=== PATIENT | female | born 1950 | race Caucasian/White ===

== ENCOUNTER → 2020-08-27 | Outpatient (CLI) | payer MEDICARE, OTHER ==
[~2020-08-27] MED LIST: ALBU2.5V8 INH; AMLO-186 PO; ASPI325T8 PO; ATEN100T PO; DIPH50CA59 PO; DULA0.75 SQ; LEVO100T5 PO; METF-658 PO; OLME40TA12 PO; SIMV20TA18 PO; SPIR25TA5 PO; TRAM50TA PO; TURM500C4 PO
== END ==
LOC: LAB 10:00
PROVIDERS: ATTEND Nurse Anesthetist, Certified Registered
DX: Z01.812 Encounter for preprocedural laboratory examination (principal); Z20.822 Contact with and (suspected) exposure to COVID-19
CPT/HCPCS: U0003

== ENCOUNTER → 2020-08-31 | Day surgery (SDC) | payer MEDICARE, OTHER ==
[~2020-08-31] MED LIST changes: +IPRATRPIUM/ALBUTEROL 0.5/2.5MG 3 ML NEBU. NEB PRN; +IV RINGERS SOLUTION,LACTATED 1,000 ML IV SCH; +LIDOCAINE 2% PF 5 ML VIAL. ONE; +MIDAZOLAM HCL PF 2 MG/2 ML VIAL. IV ONE; +ONDANSETRON PF 4 MG/2 ML VIAL. IV PRN; +PROPOFOL 10,000 MCG/ML (20ML) VIAL IV ONE
[2020-08-31 11:16] VITALS: BP 141/70
== END | disposition home or self-care (01) ==
LOC: SURG 09:05
PROVIDERS: ATTEND Emergency Medicine
DX: Z12.11 Encounter for screening for malignant neoplasm of colon (principal); K63.5 Polyp of colon; K63.89 Other specified diseases of intestine; I10 Essential (primary) hypertension; E78.00 Pure hypercholesterolemia, unspecified; F17.210 Nicotine dependence, cigarettes, uncomplicated; K21.9 Gastro-esophageal reflux disease without esophagitis; E11.9 Type 2 diabetes mellitus without complications; Z88.0 Allergy status to penicillin; Z88.8 Allergy status to other drugs, medicaments and biological substances; Z98.890 Other specified postprocedural states; Z79.899 Other long term (current) drug therapy; Z79.82 Long term (current) use of aspirin; Z79.84 Long term (current) use of oral hypoglycemic drugs
CPT/HCPCS: 45380; 45385; 82947; 88305; J2001; J2704; J7120

== ENCOUNTER 2021-02-13 12:14 | Emergency (ER) | payer MEDICARE, OTHER ==
[~2021-02-13] VITALS: Ht 170.2 cm; Wt 90.0 kg
[~2021-02-13 12:14] MED LIST changes: -IPRATRPIUM/ALBUTEROL 0.5/2.5MG 3 ML NEBU. NEB PRN; -IV RINGERS SOLUTION,LACTATED 1,000 ML IV SCH; -LIDOCAINE 2% PF 5 ML VIAL. ONE; -MIDAZOLAM HCL PF 2 MG/2 ML VIAL. IV ONE; -ONDANSETRON PF 4 MG/2 ML VIAL. IV PRN; -PROPOFOL 10,000 MCG/ML (20ML) VIAL IV ONE
[2021-02-13 12:25] VITALS: BP 141/70
[2021-02-13] MEDS ORDERED: COLCHICINE 0.6 MG TABLET. PO ONE ×2 (12:45→13:15)
[2021-02-13] MEDS ORDERED: IBUPROFEN 600 MG TABLET. PO ONE (13:00)
--- NOTE | 2021-02-13 13:00 | PHYS DOC ---
Past History Additional Past Medical Histor: gout Past Surgical History: Tonsillectomy, Tubal ligation Additional Past Surgical Histo: ORIF right wrist General Adult EDM: Chief Complaint: TOE PROBLEM HPI: HPI: Patient is a 70-year-old female who presents with red, painful right great toe. Patient states "my toe started hurting and then today realized that it is gout". Patient states that she has a history of gout. Denies taking anything at home. Review of Systems: Review of Systems: Constitutional: Denies fever or chills Eyes: Denies change in visual acuity HENT: Denies nasal congestion or sore throat Respiratory: Denies cough or shortness of breath Cardiovascular: Denies chest pain or edema GI: Denies abdominal pain, nausea, vomiting, bloody stools or diarrhea : Denies dysuria Musculoskeletal: Denies back pain or joint pain Integument: Reddened, swelling right great toe Neurologic: Denies headache, focal weakness or sensory changes Endocrine: Denies polyuria or polydipsia Lymphatic: Denies swollen glands Psychiatric: Denies depression or anxiety Current Medications: Current Meds: Current Medications Medications (Trade) Dose Ordered Sig/Gil Start Time Stop Time Status Last Admin Dose Admin Colchicine (Colcrys) 0.6 mg 1X ONCE 02/13/21 12:45 02/13/21 12:46 UNV Allergies: Allergies: Allergies Coded Allergies Type Severity Reaction Last Updated Verified Penicillins Allergy Unknown Hives 02/13/21 Yes lisinopril Allergy Unknown Itching 02/13/21 Yes Physical Exam: PE: Constitutional: Well developed, well nourished, no acute distress, non-toxic appearance. [] HENT: Normocephalic, atraumatic, bilateral external ears normal, oropharynx moist, no oral exudates, nose normal. [] Eyes: PERRLA, EOMI, conjunctiva normal, no discharge. [] Neck: Normal range of motion, no tenderness, supple, no stridor. [] Cardiovascular:Heart rate regular rhythm, no murmur [] Lungs & Thorax: Bilateral breath sounds clear to auscultation [] Abdomen: Bowel sounds normal, soft, no tenderness, no masses, no pulsatile masses. [] Skin: Warm, dry, no erythema, no rash. [] Back: No tenderness, no CVA tenderness. [] Extremities: No tenderness, no cyanosis, no clubbing, ROM intact, no edema. [] Neurologic: Alert and oriented X 3, normal motor function, normal sensory function, no focal deficits noted. [] Psychologic: Affect normal, judgement normal, mood normal. [] Current Patient Data: Vital Signs: Vital Signs Date Time Temp Pulse Resp B/P (MAP) Pulse Ox O2 Delivery O2 Flow Rate FiO2 02/13/21 12:25 98.6 70 16 141/70 (93) 99 EKG: EKG: [] Radiology/Procedures: Radiology/Procedures: [] Heart Score: C/O Chest Pain: No Risk Factors: Risk Factors: DM, Current or recent (<one month) smoker, HTN, HLP, family history of CAD, obesity. Risk Scores: Score 0 - 3: 2.5% MACE over next 6 weeks - Discharge Home Score 4 - 6: 20.3% MACE over next 6 weeks - Admit for Clinical Observation Score 7 - 10: 72.7% MACE over next 6 weeks - Early Invasive Strategies Course & Med Decision Making: Course & Med Decision Making Pertinent Labs and Imaging studies reviewed. (See chart for details) [] 70-year-old female presents with red, painful right great toe. Symptoms started on Sunday. Patient has a history of gout. Patient given ibuprofen, prednisone, Colchicine. Advised patient to call PCP make a follow-up appointment. Patient is appreciative and okay with discharge plan. Dimitris Disclaimer: Dimitris Disclaimer: This electronic medical record was generated, in whole or in part, using a voice recognition dictation system. 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 I treated you with medication for gout, and steroids along with ibuprofen for pain. Please call your PCP make a follow-up appointment for tomorrow. Return to emergency room with worsening symptoms or concerns. EMERGENCY DEPARTMENT GENERAL DISCHARGE INSTRUCTIONS Thank you for coming to [facility] (ED) today and trusting us with you care. We trust that you had a positivie experience in our Emergency Department. If you wish to speak to the department management, you may call the director at [phone]. YOUR FOLLOW UP INSTRUCTIONS ARE FOLLOWS: 1. Do you have a private Doctor? If you do not have a private doctor, please ask for a resource list of physicians or clinics that may be able to assist you with follow up care. 2. The Emergency Physician has interpreted your x-rays. The X-Ray specialist will also review them. If there is a change in the findings, you will be notified in 48 hours when at all possible. 3. A lab test or culture has been done, your results will be reviewed and you will be notified if you need a change in treatment. ADDITIONAL INSTRUCTIONS AND INFORMATION: 1. Your care today has been supervised by a physician who is specially trained in emergency care. Many problems require more than one evaluation for a complete diagnosis and treatment. We recommend that you schedule your follow up appointment as recommended to ensure complete treatment of you illness or injury. If you are unable to obtain follow up care and continue to have a problem, or if your condition worsens, we recommend that you return to the ED. 2. We are not able to safely determine your condition over the phone nor are we able to give sound medical advice over the phone. For these safety reasons, if you call for medical advice we will ask you to come to the ED for further evaluation. 3. If you have any questions regarding these discharge instructions please call the ED at [phone]. SAFETY INFORMATION: In the interest of safety, wellness, and injury prevention; we encourage you to wear your sealbelt, if you smoke; quite smoking, and we encourage family to use a protective helmet for bicycling and other sporting events that present an increased risk for head injury. IF YOUR SYMPTOMS WORSEN OR NEW SYMPTOMS DEVELOP, OR YOU HAVE CONCERNS ABOUT YOUR CONDITION; OR IF YOUR CONDITION WORSENS WHILE YOU ARE WAITING FOR YOUR FOLLOW UP APPO INTMENT; EITHER CONTACT YOUR PRIMARY CARE DOCTOR, THE PHYSICIAN WHOSE NAME AND NUMBER YOU WERE GIVEN, OR RETURN TO THE ED IMMEDIATELY. LEXX SMITH APRN Feb 13, 2021 13:00
[2021-02-13] MEDS ORDERED: predniSONE 20 MG TABLET PO ONE (13:15)
[2021-02-14] MEDS ORDERED: COLCHICINE 0.6 MG TABLET. PO SCH (09:00)
== END 2021-02-13 14:22 | disposition home or self-care (01) ==
LOC: ER 12:14
DX: M10.472 Other secondary gout, left ankle and foot (principal); Z88.0 Allergy status to penicillin; Z88.8 Allergy status to other drugs, medicaments and biological substances
CPT/HCPCS: 99284; J7512